=== PATIENT | female | born 1960 | race Two or more races ===

== ENCOUNTER 2025-03-12 16:15 | Inpatient (IN) | payer MEDICAID, OTHER ==
[~2025-03-12] VITALS: Ht 162.6 cm; Wt 67.0 kg
--- NOTE | 2025-03-12 17:26 | ED.PDOC ---
GI ASSESSMENT HPI Comments 65 y/o F, with PMHx of dementia and chronic gastrointestinal issues presents to the ED for CC of abdominal pain. EMS reports, patient is coming from home where she c/o diarrhea following, eating a breadstick. Patient states, that she is usually not able to maintain foods other than salad and water, and since having bread it has prompted symptoms. Upon arrival to the ED, patient arrives incontinent and defecated. At this time patient is answering all questions appropriately. Patient denies nausea, vomiting, increased thirst, dizziness, or headache. No other symptoms or modifying factors are present at this time. Chief Complaint: Abdominal Pain Time Seen by MD: 17:00 Reviewed Notes: Nurses Notes Allergies: Coded Allergies: NO KNOWN ALLERGIES (Unverified , 03/12/25) Information Source: Patient Mode of Arrival: EMS Past Medical History PAST MEDICAL HISTORY: Dementia, HTN Respiratory: denies: cough, hemoptysis, orthopnea, SOB at rest, shortness of breath, SOB with excertion, stridor, wheezing, others Cardiovascular: denies: chest pain, dizzy spells, diaphoresis, Dyspnea on exertion, edema, irregular heart beat, left arm pain, lightheadedness, palpitations, PND, syncope, others Gastrointestinal: reports: abdominal pain, diarrhea, nausea, poor appetite Genitourinary: denies: abnormal vagina bleeding, burning, dyspareunia, dysuria, flank pain, frequency, hematuria, incontinence, pain, , vagina discharge, urgency, others Neurological: denies: dizziness, fainting, headache, left sided numbness, left sided weakness, numbness, paresthesia, pre-existing deficit, right sided numbness, right sided weakness, seizure, speech problems, tingling, tremors, weakness, others Musculoskeletal: denies: back pain, gout, joint pain, joint swelling, muscle pain, muscle stiffness, neck pain, others Physical Exam General Appearance: No Apparent Distress, Thin, Other (fraile, incontinent covered in feces ) HEENT: Normal ENT Inspection, Pharynx Normal Neck: Full Range of Motion, Non-Tender, Normal, Normal Inspection Respiratory: Chest Non-Tender, Lungs Clear, No Accessory Muscle Use, No Respiratory Distress, Normal Breath Sounds Cardiovascular: No Edema, No Murmur, No Gallop, Normal Peripheral Pulses, Regular Rate/Rhythm Breast Exam: Deferred Gastrointestinal: No Organomegaly, Non Tender, No Pulsatile Mass, Normal Bowel Sounds, Soft Genitalia: Deferred Pelvic: Deferred Rectal: Deferred Extremities: No calf tenderness, Normal capillary refill, Normal inspection, Normal range of motion, Non-tender, No pedal edema Musculoskeletal : Apperance: Normal Neurologic: Alert, chief revenue officer II-XII nml as Tested, No Motor Deficits, Normal Affect, Normal Mood, No Sensory Deficits Cerebellar Function: Normal Reflexes: Normal Skin: Dry, Normal Color, Warm Lymphatic: No Adenopathy Was a procedure done? Was a procedure done?: No GI differential Dx Differential Diagnosis: Gastritis/PUD, Gastroenteritis, Electrolyte Imbalance, Food Poisoning, Bacterial, Viral X-Ray, Labs, Meds, VS Vital Signs Date Time Temp Pulse Resp B/P (MAP) Pulse Ox O2 Delivery O2 Flow Rate FiO2 03/12/25 20:36 93 20 96 Room Air* 0 21 03/12/25 20:36 98.1 78 20 124/74 (91) 97 98.1 03/12/25 19:07 97 18 98 Room Air* 0 21 03/12/25 19:07 98.7 97 18 115/55 (75) 98 98.7 03/12/25 16:18 89 03/12/25 16:16 98.4 90 18 122/70 95 98.4 Lab Test 03/12/25 21:00 03/12/25 18:00 Range/Units Urine Color Pending Urine Clarity Pending Urine pH Pending Urine Specific [place] Pending Urine Protein Pending Urine Ketones Pending Urine Blood Pending Urine Nitrite Pending Urine Bilirubin Pending Urine Urobilinogen Pending Urine Leukocyte Esterase Pending Urine RBC Pending Urine Microscopic WBC Pending Urine Squamous Epithelial Cells Pending Urine Bacteria Pending Urine Glucose Pending White Blood Count 18.7 H 4.4-10.8 10^3/uL Red Blood Count 4.09 4.0-5.20 10^6/uL Hemoglobin 11.5 L 12.2-16.2 g/dL Hematocrit 34.9 L 36.0-46.0 % Mean Corpuscular Volume 85.3 80.0-100.0 fL Mean Corpuscular Hemoglobin 28.0 28.0-32.0 pg Mean Corpuscular Hemoglobin Concent 32.8 32.0-36.0 g/dL Red Cell Distribution Width 12.9 11.8-14.3 % Platelet Count 295 140-450 10^3/uL Mean Platelet Volume 8.5 6.9-10.8 fL Neutrophils (%) (Auto) 77.6 37.0-80.0 % Lymphocytes (%) (Auto) 10.6 10.0-50.0 % Monocytes (%) (Auto) 11.5 0.0-12.0 % Eosinophils (%) (Auto) 0.1 0.0-7.0 % Basophils (%) (Auto) 0.2 0.0-2.0 % Neutrophils # (Auto) 14.5 H 1.6-8.6 10 ^3/uL Lymphocytes # (Auto) 2.0 0.4-5.4 10 ^3/uL Monocytes # (Auto) 2.1 H 0-1.3 10 ^3/uL Eosinophils # (Auto) 0 0-0.8 10 ^3/uL Basophils # (Auto) 0 0-0.2 10 ^3/uL Nucleated Red Blood Cells 0.0 % Sodium Level 147 H 136-145 mmol/L Potassium Level 3.7 3.5-5.1 mmol/L Chloride Level 105 98-107 mmol/L Carbon Dioxide Level 31 20-31 mmol/L Anion Gap 11 5-15 Blood Urea Nitrogen 11 9-23 mg/dL Creatinine 0.84 0.550-1.02 mg/dL Glomerular Filtration Rate Calc 77 >90 mL/min BUN/Creatinine Ratio 13.1 10.0-20.0 Serum Glucose 157 H 74-106 mg/dL Lactic Acid Level 1.4 0.4-2.0 mmol/L Calcium Level 10.0 8.7-10.4 mg/dL Total Bilirubin 0.7 0.2-1.0 mg/dL Aspartate Amino Transferase (AST) 32 13-40 U/L Alanine Aminotransferase (ALT) 30 7-40 U/L Alkaline Phosphatase 92 46-116 U/L Total Protein 8.0 5.7-8.2 g/dL Albumin 4.5 3.2-4.8 g/dL Lipase 27 12-53 U/L X-Ray, Labs, Meds, VS Comment Patient be admitted for cholelithiasis, recommend MRCP Patient be started on Rocephin and Flagyl Given four morphine and four Zofran Patient hemodynamically stable Time of 1ST Reevaluation: 17:30 Reevaluation 1ST: Unchanged Patient Education/Counseling: Diagnosis, Treatment Family Education/Counseling: No Family Present SEPSIS Sepsis Screen Date sepsis recognized/suspect: Mar 12, 2025 Time Sepsis recognized/suspect: 1615 Recent Procedure: No On Antibiotic Therapy: No Respiratory Rate >20: No Heart Rate >90: No Temp<36 C (96.8 F) or >38.3 C: No SBP <90 or MAP <65 mmHG: No New Acute Mental Status Change: No Is the patient on CPAP, BIPAP,: No Physician Orders Electrocardigram (03/12/25 16:21) Urinalysis (03/12/25 16:56) Ct Ab Pel Wo Con-No Oral Or Iv (03/12/25 16:56) Hubbard Catheters (03/12/25 ) Gallbladder (03/12/25 20:38) Ceftriaxone Ivpb Rocephin (03/12/25 21:45) Metronidazole Ivpb Flagyl (03/12/25 21:45) Vital Signs Date Time Temp Pulse Resp B/P (MAP) Pulse Ox O2 Delivery O2 Flow Rate FiO2 03/12/25 20:36 93 20 96 Room Air* 0 21 03/12/25 20:36 98.1 78 20 124/74 (91) 97 98.1 03/12/25 19:07 97 18 98 Room Air* 0 21 03/12/25 19:07 98.7 97 18 115/55 (75) 98 98.7 03/12/25 16:18 89 03/12/25 16:16 98.4 90 18 122/70 95 98.4 Laboratory Tests Test 03/12/25 18:00 Lactic Acid Level 1.4 mmol/L (0.4-2.0) White Blood Count 18.7 10^3/uL (4.4-10.8) H Departure 1 Departure Time of Disposition: 21:48 Impression: Primary Impression: Cholecystitis Disposition: ADMITTED INPATIENT Condition: Stable Critical Care Note Critical Care Time?: No Stability Stability form required: No Heart Score Heart Score: Heart Score Response (Comments) Value History N/A 0 EKG N/A 0 Age N/A 0 Risk Factors N/A 0 Troponin N/A 0 Total 0 I personally scribed for GENNY GONZALES ([email or web address]) on 03/12/25 at 17:26. Electronically submitted by Izzy Pate ([email or web address]). GENNY GONZALES Mar 12, 2025 17:26
[2025-03-12 18:38] LABS: Hematocrit 34.9 % (36.0-46.0); Hemoglobin 11.5 g/dL (12.2-16.2); Mean Corpuscular Hemoglobin 28.0 pg (28.0-32.0); Mean Corpuscular Volume 85.3 fL (80.0-100.0); Nucleated Red Blood Cells % 0.0 %
[2025-03-12 18:58] LABS: Alanine Aminotransferase 30 U/L (7-40); Albumin 4.5 g/dL (3.2-4.8); Alkaline Phosphatase 92 U/L (46-116); Anion Gap 11 (5-15); BUN/Creatinine Ratio 13.1 (10.0-20.0); Bilirubin, Total 0.7 mg/dL (0.2-1.0); Blood Urea Nitrogen 11 mg/dL (9-23); Calcium 10.0 mg/dL (8.7-10.4); Carbon Dioxide 31 mmol/L (20-31); Chloride 105 mmol/L (98-107); Glucose 157 mg/dL (74-106); Lipase 27 U/L (12-53); Potassium 3.7 mmol/L (3.5-5.1); Sodium 147 mmol/L (136-145); Total Protein 8.0 g/dL (5.7-8.2)
[2025-03-12 19:07] VITALS: PULSE 97; RESP 18; O2SAT 98
--- NOTE | 2025-03-12 20:01 | DVH ---
Exam: CT CT AB PEL WO CON-NO ORAL OR IV History: abd pain Comparison Study: None TECHNIQUE: Multidetector CT of the abdomen pelvis without IV contrast. Axial, coronal and sagittal mu ltiplanar reformats were obtained from the axial data set by the technologist. Radiation Dose Information: CT Dose: CTDI volume is 5.94 mGy. Dose-length product is 317.12 mGy*cm FINDINGS: Atelectasis. Heart size is within normal limits regions Peritoneal effusion. Liver, spleen, and adrenal glands unremarkable. Moderate to significant distention of the gallbladder mild gallbladder wall thickening. No CT evidence of cholelithiasis. Limited evaluation of the pancr eas for acute pancreatitis. Kidneys, visualized ureters unremarkable. Moderate distention of the urinary bladder up to the level of the lower vertebral body of L5. Hxka-la-slziepto distention of the stomach. Small bowel loops unremarkable. Short segmental distentio n of the appendix up to 1 cm over an area with 1.1 by 1 cm appendicolith with the appendix proximal a nd distal to the segmental distention unremarkable. Large bowel is unremarkable. No evidence of intraperitoneal free air or free fluid. No evidence of aortic aneurysm. Mild atherosclerotic calcification of the aorta. No significant lymphadenopathy. Partially calcified left adnexal 1.2 cm lesion. Soft tissue edema posterior to the distal sacrum and coccyx. Tiny fat containing umbilical hernia. Mi nimal body wall edema. No evidence of acute osseous abnormalities. Grade 1 retrolisthesis of L5 on S1 . IMPRESSION: Moderate to significant distention of the gallbladder with mild gallbladder wall thickening. No CT ev idence of cholelithiasis. Right upper quadrant ultrasound is recommended for further evaluation. Moderate distention of the urinary bladder up to the level of the lower vertebral body of L5. If pat ient can not void, Hubbard catheter placement should be considered. Short segmental distention of the appendix up to 1 cm over an area with 1.1 by 1 cm appendicolith wit h the appendix proximal and distal to the segmental distention unremarkable.
[2025-03-12 20:36] VITALS: PULSE 93; RESP 20; O2SAT 96
[2025-03-12] MEDS: ONDANSETRON HCL 4 MG/2 ML VIAL IV ONE (20:45)
[2025-03-12] MEDS: MORPHINE SULFATE 4 MG/ML SYR/VIAL IV ONE (20:45)
--- NOTE | 2025-03-12 21:12 | DVH ---
CLINICAL INFORMATION: 65 years old, Female; abd pain. TECHNIQUE: Grayscale sonographic imaging of the right upper quadrant of the abdomen was performed, a ssisted by color Doppler techniques. COMPARISON: None FINDINGS: The gallbladder wall measures 6 mm in thickness, within normal limits. There is cholelith iasis. Negative reported sonographic Ashley sign. The common bile duct measures 9 mm in diameter. The liver is normal in size and demonstrates heterogeneous echotexture. No focal lesions. The pancreas is partly obscured, likely by bowel gas. The visualized portions appear normal. The right kidney measures 8.6 cm. There is no hydronephrosis. A 9 mm nonobstructing renal calculus is seen. IMPRESSION: 1. Cholelithiasis with gallbladder wall thickening. Findings may reflect acute cholecystitis in the appropriate clinical setting. 2. Dilated common bile duct, further evaluation with MRCP is suggested.
[2025-03-12 22:03] LABS: Urine Protein, UAD TRACE (Negative)
[2025-03-12] MEDS ORDERED: MORPHINE SULFATE INJ 2 MG/ml SYRG IV PRN (23:15)
[2025-03-12] MEDS ORDERED: DEXTROSE (50%) 50ML SYRG IV PRN ×2 (23:15)
[2025-03-12] MEDS: SODIUM CHLORIDE 0.9% 1,000 ML IV ONE (23:30)
[2025-03-12] MEDS: PANTOPRAZOLE 40 MG/10 ML VIAL INJ IV ONE (23:31)
[2025-03-13] VITALS (9 sets, daily range): BP systolic 98–146; BP diastolic 53–71; PULSE 74–96; RESP 12–18; TEMP 97–97.9; O2SAT 93–100
[2025-03-13 00:07] LABS: INR 1.01 (0.9-1.15); Partial Thromboplastin Time 25.4 SEC (24.5-34.5); Prothrombin Time 10.7 sec (9.3-11.8)
[2025-03-13] MEDS: ACCU-CHEK COMFORT CURVE STRIP VI SCH ×2 (00:09)
[2025-03-13] MEDS: InsuLIN REG 1unit/0.01ml Soln (100units/ml) SC SCH ×2 (00:19)
--- NOTE | 2025-03-13 03:46 | DVHHP2 ---
History of Present Illness Reason for Visit: Abdominal pain History of Present Illness 65-year-old female presents for evaluation of abdominal pain. Patient reports a one day history of diffuse abdominal pain after eating a bread stick. Reports episodes of nausea with vomiting as well as diarrhea. No fever or chills. Past Medical History Diabetes mellitus, hypertension, dementia, thyroid Past Surgical History Denies Family History Noncontributory Smoke: No ALCOHOL: none Drugs: None Lives: with Family Review of Systems Review of Systems Review of systems are currently negative otherwise addressed in HPI. Allergies: Coded Allergies: NO KNOWN ALLERGIES (Unverified , 03/12/25) Medications Current Medications Medications Dose Ordered Sig/Marisa Route Start Time Stop Time Status Last Admin Dose Admin Ceftriaxone Sodium 50 ml @ 100 mls/hr DAILY@09 IV 03/14/25 09:00 Metronidazole 100 ml @ 100 mls/hr Q8HR IV 03/13/25 06:00 Pantoprazole Sodium 40 mg DAILY IV 03/14/25 10:00 Ondansetron HCl 4 mg Q4HP PRN IV 03/12/25 23:15 Morphine Sulfate 2 mg Q4HPRN PRN IV 03/12/25 23:15 Diagnostic Test (Pha) 1 strip Q6HR 03/13/25 00:00 03/13/25 00:09 1 STRIP Insulin Human Regular Q6HR SC 03/13/25 00:00 03/13/25 00:19 3 UNITS Dextrose 50 ml UD PRN IV 03/12/25 23:15 Diagnostic Test (Pha) 1 strip Q6HR 03/13/25 00:00 Insulin Human Regular Q6HR SC 03/13/25 00:00 Dextrose 50 ml UD PRN IV 03/12/25 23:15 Exam Vital Signs Vital Signs Date Time Temp Pulse Resp B/P (MAP) Pulse Ox O2 Delivery O2 Flow Rate FiO2 03/12/25 21:15 91 20 97/62 03/12/25 20:36 96 Room Air* 0 21 03/12/25 20:36 98.1 98.1 Exam Gen: 65-year-old female Skin: Warm, dry, normal color and texture, no rash. HEENT: Normocephalic atraumatic, mucous membranes moist and pink. Neck: Cervical and supraclavicular nodes normal without enlargement, trachea is midline, thyroid gland is normal without masses. Pulmonary: Clear to auscultation and percussion bilaterally. Cardiac: Regular rate and rhythm. No murmur Abdomen: Soft, nontender, nondistended, bowel sounds present all 4 quadrants, no guarding, no rigidity, no organomegaly. Extremities: No cyanosis, clubbing, no edema Neuro: Cranial nerves II through XII grossly intact, normal affect and speech, no focal motor deficits. Labs/Xrays ORDERING PHYSICIAN: GENNY GONZALES PROCEDURE(s): ABPL - CT AB PEL WO CON-NO ORAL OR IV REASON: abd pain ORDER NUMBER(s): [id number], ACCESSION NUMBER(s): [id number] Exam: CT CT AB PEL WO CON-NO ORAL OR IV History: abd pain Comparison Study: None TECHNIQUE: Multidetector CT of the abdomen pelvis without IV contrast. Axial, coronal and sagittal multiplanar reformats were obtained from the axial data set by the technologist. Radiation Dose Information: CT Dose: CTDI volume is 5.94 mGy. Dose-length product is 317.12 mGy*cm FINDINGS: Atelectasis. Heart size is within normal limits regions Peritoneal effusion. Liver, spleen, and adrenal glands unremarkable. Moderate to significant distention of the gallbladder mild gallbladder wall thickening. No CT evidence of cholelithiasis. Limited evaluation of the pancreas for acute pancreatitis. Kidneys, visualized ureters unremarkable. Moderate distention of the urinary bladder up to the level of the lower vertebral body of L5. [place] distention of the stomach. Small bowel loops unremarkable. Short segmental distention of the appendix up to 1 cm over an area with 1.1 by 1 cm appendicolith with the appendix proximal and distal to the segmental distention unremarkable. Large bowel is unremarkable. No evidence of intraperitoneal free air or free fluid. No evidence of aortic aneurysm. Mild atherosclerotic calcification of the aorta. No significant lymphadenopathy. Partially calcified left adnexal 1.2 cm lesion. Soft tissue edema posterior to the distal sacrum and coccyx. Tiny fat containing umbilical hernia. Minimal body wall edema. No evidence of acute osseous abnormalities. Grade 1 retrolisthesis of L5 on S1. IMPRESSION: Moderate to significant distention of the gallbladder with mild gallbladder wall thickening. No CT evidence of cholelithiasis. Right upper quadrant ultrasound is recommended for further evaluation. Moderate distention of the urinary bladder up to the level of the lower vertebral body of L5. If patient can not void, Hubbard catheter placement should be considered. Short segmental distention of the appendix up to 1 cm over an area with 1.1 by 1 cm appendicolith with the appendix proximal and distal to the segmental distention unremarkable. RING PHYSICIAN: GENNY GONZALES PROCEDURE(s): GBUS - GALLBLADDER REASON: abd pain ORDER NUMBER(s): [id number], ACCESSION NUMBER(s): [id number] CLINICAL INFORMATION: 65 years old, Female; abd pain. TECHNIQUE: Grayscale sonographic imaging of the right upper quadrant of the abdomen was performed, assisted by color Doppler techniques. COMPARISON: None FINDINGS: The gallbladder wall measures 6 mm in thickness, within normal limit s. There is cholelithiasis. Negative reported sonographic Ashley sign. The common bile duct measures 9 mm in diameter. The liver is normal in size and demonstrates heterogeneous echotexture. No focal lesions. The pancreas is partly obscured, likely by bowel gas. The visualized portions appear normal. The right kidney measures 8.6 cm. There is no hydronephrosis. A 9 mm nonobst ructing renal calculus is seen. IMPRESSION: 1. Cholelithiasis with gallbladder wall thickening. Findings may reflect acute cholecystitis in the appropriate clinical setting. 2. Dilated common bile duct, further evaluation with MRCP is suggested. Labs Test 03/13/25 00:10 03/12/25 23:30 03/12/25 21:00 03/12/25 18:00 Range/Units POC Glucose 189 H 70-106 mg/dl Prothrombin Time 10.7 9.3-11.8 sec Prothrombin Time INR 1.01 0.9-1.15 Activated Partial Thromboplast Time 25.4 24.5-34.5 SEC Urine Color Light-yellow Yellow Urine Clarity Clear Clear Urine pH 7.0 5.0-9.0 Urine Specific [place] 1.011 1.001-1.035 Urine Protein Trace H Negative Urine Ketones Negative Negative Urine Blood Negative Negative /uL Urine Nitrite Negative Negative Urine Bilirubin Negative Negative Urine Urobilinogen Normal Negative mg/dL Urine Leukocyte Esterase 2+ Negative /uL Urine RBC 4 0 - 4 /hpf Urine Microscopic WBC 11 H 0-5 /HPF Urine Squamous Epithelial Cells Few <5 /hpf Urine Bacteria None seen None Seen /hpf Urine Hyaline Casts Few 0 - 2 /lpf Urine Glucose Normal Normal mg/dL White Blood Count 18.7 H 4.4-10.8 10^3/uL Red Blood Count 4.09 4.0-5.20 10^6/uL Hemoglobin 11.5 L 12.2-16.2 g/dL Hematocrit 34.9 L 36.0-46.0 % Mean Corpuscular Volume 85.3 80.0-100.0 fL Mean Corpuscular Hemoglobin 28.0 28.0-32.0 pg Mean Corpuscular Hemoglobin Concent 32.8 32.0-36.0 g/dL Red Cell Distribution Width 12.9 11.8-14.3 % Platelet Count 295 140-450 10^3/uL Mean Platelet Volume 8.5 6.9-10.8 fL Neutrophils (%) (Auto) 77.6 37.0-80.0 % Lymphocytes (%) (Auto) 10.6 10.0-50.0 % Monocytes (%) (Auto) 11.5 0.0-12.0 % Eosinophils (%) (Auto) 0.1 0.0-7.0 % Basophils (%) (Auto) 0.2 0.0-2.0 % Neutrophils # (Auto) 14.5 H 1.6-8.6 10 ^3/uL Lymphocytes # (Auto) 2.0 0.4-5.4 10 ^3/uL Monocytes # (Auto) 2.1 H 0-1.3 10 ^3/uL Eosinophils # (Auto) 0 0-0.8 10 ^3/uL Basophils # (Auto) 0 0-0.2 10 ^3/uL Nucleated Red Blood Cells 0.0 % Sodium Level 147 H 136-145 mmol/L Potassium Level 3.7 3.5-5.1 mmol/L Chloride Level 105 98-107 mmol/L Carbon Dioxide Level 31 20-31 mmol/L Anion Gap 11 5-15 Blood Urea Nitrogen 11 9-23 mg/dL Creatinine 0.84 0.550-1.02 mg/dL Glomerular Filtration Rate Calc 77 >90 mL/min BUN/Creatinine Ratio 13.1 10.0-20.0 Serum Glucose 157 H 74-106 mg/dL Lactic Acid Level 1.4 0.4-2.0 mmol/L Calcium Level 10.0 8.7-10.4 mg/dL Total Bilirubin 0.7 0.2-1.0 mg/dL Aspartate Amino Transferase (AST) 32 13-40 U/L Alanine Aminotransferase (ALT) 30 7-40 U/L Alkaline Phosphatase 92 46-116 U/L Total Protein 8.0 5.7-8.2 g/dL Albumin 4.5 3.2-4.8 g/dL Lipase 27 12-53 U/L SEPSIS Sepsis Screen Date sepsis recognized/suspect: Mar 12, 2025 Time Sepsis recognized/suspect: 2039 Recent Procedure: No On Antibiotic Therapy: No Respiratory Rate >20: No Heart Rate >90: No Temp<36 C (96.8 F) or >38.3 C: No SBP <90 or MAP <65 mmHG: No New Acute Mental Status Change: No Is the patient on CPAP, BIPAP,: No Physician Orders Gallbladder (03/12/25 20:38) Nm Hida Scan (03/12/25 23:15) Metronidazole 500mg/100ml (Flagyl 500mg/ (03/13/25 06:00) Sodium Chloride 0.9% (03/12/25 23:15) * Surgical Consult (03/12/25 ) Ondansetron Hcl (Zofran) (03/12/25 23:15) Complete Blood Count (03/13/25 04:00) Comprehensive Metabolic Panel (03/13/25 04:00) Npo (Nothing By Mouth) Diet (03/13/25 Breakfast) Condition: Stable (03/12/25 23:15) Bedrest With Bathroom Privileg (03/12/25 23:15) Morphine Sulfate Injection (03/12/25 23:15) Glucose Blood (Accu-Chek Comfort Curve T (03/13/25 00:00) Insulin R (Human) (Insulin R) (03/13/25 00:00) Dextrose 50% Syringe (03/12/25 23:15) Glucose Blood (Accu-Chek Comfort Curve T (03/13/25 00:00) Insulin R (Human) (Insulin R) (03/13/25 00:00) Dextrose 50% Syringe (03/12/25 23:15) Admit (03/12/25 23:15) Ceftriaxone 1gm/50ml (Rocephin) (03/14/25 09:00) Pantoprazole (Protonix) (03/14/25 10:00) Vital Signs Date Time Temp Pulse Resp B/P (MAP) Pulse Ox O2 Delivery O2 Flow Rate FiO2 03/12/25 21:15 91 20 97/62 03/12/25 20:45 78 20 125/78 03/12/25 20:36 93 20 96 Room Air* 0 21 03/12/25 20:36 98.1 78 20 124/74 (91) 97 98.1 Laboratory Tests Test 03/12/25 18:00 Lactic Acid Level 1.4 mmol/L (0.4-2.0) White Blood Count 18.7 10^3/uL (4.4-10.8) H Medications Medications Dose Ordered Sig/Marisa Route Start Time Stop Time Status Last Admin Dose Admin Ceftriaxone Sodium 50 ml @ 100 mls/hr ONCE ONCE IV 03/12/25 21:45 03/12/25 22:14 DC 03/12/25 21:45 100 MLS/HR Diagnostic Test (Pha) 1 strip Q6HR 03/13/25 00:00 03/13/25 00:09 1 STRIP Insulin Human Regular Q6HR SC 03/13/25 00:00 03/13/25 00:19 3 UNITS Metronidazole 100 ml @ 100 mls/hr ONCE ONCE IV 03/12/25 21:45 03/12/25 22:44 DC 03/12/25 21:45 100 MLS/HR Morphine Sulfate 4 mg ONCE ONCE IV 03/12/25 20:45 03/12/25 20:46 DC 03/12/25 20:45 4 MG Ondansetron HCl 4 mg ONCE ONCE IV 03/12/25 20:45 03/12/25 20:46 DC 03/12/25 20:45 4 MG Pantoprazole Sodium 40 mg ONCE ONCE IV 03/12/25 23:15 03/12/25 23:27 DC 03/12/25 23:31 40 MG Sodium Chloride 1,000 ml @ 80 mls/hr [id number] ONCE IV 03/12/25 23:15 03/13/25 11:44 9/30/25 23:30 80 MLS/HR Assessment/Plan Assessment/Plan Assessment Acute abdominal pain Rule out acute cholecystitis UTI Diabetes mellitus Plan Admit the patient to [facility] surge to the hospitalist HIDA scan pending Surgical consultation NPO Pain management Rocephin/Flagyl Maintenance IV fluids Continue treatment per orders. Plan discussed with: Patient My Orders Orders - MELANIE MCKEE Procedure Category Date Status Time Nm Hida Scan NM 03/12/25 Logged 23:15 Metronidazole PHA 03/13/25 In Process 500mg/100ml (Flagyl 06:00 Sodium Chloride 0.9% PHA 03/12/25 In Process 23:15 * Surgical Consult CONS 03/12/25 Transmitted Ondansetron Hcl PHA 03/12/25 In Process (Zofran) 23:15 Complete Blood Count LAB 03/13/25 Logged 04:00 Comprehensive LAB 03/13/25 Logged Metabolic Panel 04:00 Npo (Nothing By DIET 03/13/25 Transmitted Mouth) Diet Breakfast Condition: Stable BARNEY 03/12/25 In Process 23:15 Bedrest With Bathroom BARNEY 03/12/25 In Process Privileg 23:15 Morphine Sulfate PHA 03/12/25 In Process Injection 23:15 Glucose Blood PHA 03/13/25 In Process (Accu-Chek Comfort 00:00 Insulin R (Human) PHA 03/13/25 In Process (Insulin R) 00:00 Dextrose 50% Syringe PHA 03/12/25 In Process 23:15 Glucose Blood PHA 03/13/25 In Process (Accu-Chek Comfort 00:00 Insulin R (Human) PHA 03/13/25 In Process (Insulin R) 00:00 Dextrose 50% Syringe PHA 03/12/25 In Process 23:15 Admit ADMIT 03/12/25 Transmitted 23:15 Ceftriaxone 1gm/50ml PHA 03/14/25 In Process (Rocephin) 09:00 Pantoprazole PHA 03/14/25 In Process (Protonix) 10:00 Date of Service: Mar 12, 2025 Billing Provider: MELANIE MCKEE Common Visit Codes: [id number] INP/OBS CARE (HIGH) MELANIE MCKEE Mar 13, 2025 03:46
[2025-03-13 06:50] LABS: Hematocrit 27.8 % (36.0-46.0); Hemoglobin 9.3 g/dL (12.2-16.2); Mean Corpuscular Hemoglobin 28.3 pg (28.0-32.0); Mean Corpuscular Volume 84.4 fL (80.0-100.0); Nucleated Red Blood Cells % 0.1 %
[2025-03-13 07:17] LABS: Alkaline Phosphatase 81 U/L (46-116); Anion Gap 10 (5-15); BUN/Creatinine Ratio 14.3 (10.0-20.0); Blood Urea Nitrogen 13 mg/dL (9-23); Carbon Dioxide 29 mmol/L (20-31); Chloride 106 mmol/L (98-107); Sodium 145 mmol/L (136-145)
[2025-03-13 07:18] LABS: Total Protein 6.2 g/dL (5.7-8.2)
[2025-03-13 07:19] LABS: Albumin 3.5 g/dL (3.2-4.8); Bilirubin, Total 0.7 mg/dL (0.2-1.0)
[2025-03-13 07:20] LABS: Alanine Aminotransferase 60 U/L (7-40); Calcium 8.6 mg/dL (8.7-10.4); Glucose 116 mg/dL (74-106); Potassium 3.3 mmol/L (3.5-5.1)
--- NOTE | 2025-03-13 10:35 | DVH ---
EXAM: XY CHEST PORTABLE Indication: pain Technique: Single frontal view of the chest was obtained Comparison: None FINDINGS: Lines and Tubes: None Lungs: No focal consolidation. Pleura: No effusion. No pneumothorax. Cardiomediastinal contours: Unremarkable. Bones: No acute osseous abnormality. IMPRESSION: No acute cardiopulmonary disease.
[2025-03-13] MEDS: ceFAZolin 1GM/50ML 100 ML IV ONE (11:05)
[2025-03-13] MEDS: GABAPENTIN 300 MG CAP PO ONE (11:15)
[2025-03-13] MEDS: ACETAMINOPHEN IV 1000 MG/100ML (10MG/ML) IV ONE (11:15)
[2025-03-13] MEDS: CELECOXIB 100 MG CAP PO ONE (11:15)
[2025-03-13] MEDS ORDERED: SUGAMMADEX 200mg/2ml Vial (100MG/ML) IV ONE (11:18)
[2025-03-13] MEDS ORDERED: KETOROLAC TROMETH 30 MG/ML 1ML VIAL ONE (11:18)
[2025-03-13] MEDS ORDERED: LIDOCAINE 2%HCL (LOCAL ANESTH.) INJ 20ML MDV ONE (11:18)
[2025-03-13] MEDS ORDERED: LIDOCAINE 2% TOPICAL JELLY 5 ML URJT TOP ONE (11:18)
[2025-03-13] MEDS ORDERED: ONDANSETRON HCL 4 MG/2 ML VIAL ONE (11:18)
[2025-03-13] MEDS ORDERED: GLYCOPYRROLATE 0.2 MG/ML 1ML VIAL ONE (11:19)
[2025-03-13] MEDS ORDERED: PROPOFOL 10 MG/ML 20 ML IV ONE (11:19)
[2025-03-13] MEDS ORDERED: ROCURONIUM 10MG/ML 10ML VIAL IV ONE (11:19)
[2025-03-13] MEDS ORDERED: KETAMINE 50mg/ML 10ml Vial 10 ML ONE (11:22)
[2025-03-13] MEDS ORDERED: fentaNYL CITRATE 100 MCG/2 ML VL ONE (11:22)
--- NOTE | 2025-03-13 11:42 | DVHINCON2 ---
Consultation - Surgical Date Seen: Mar 13, 2025 Referring Physician Reason for Consultation Acute cholecystitis History of Present Illness History of Present Illness Mrs. Nobles is a 65-year-old female who presented to the hospital due to to to 3 days of upper abdominal pain that radiates to the right upper quadrant and associated with nausea and vomiting. She has also had loss of appetite not wanting to eat since Tuesday. States that she has never had this pain before and that she does not associate any particular foods with triggering the pain. Denies fevers, chills, acholic stools, changes in urinary or stooling habits. Past Medical/Surgical History Past Medical/Surgical History PMH diabetes, hypertension, dementia, blind PSH denies Family and Social History Family and Social History Family history noncontributory ETOH/T Ob/drugs denies Allergies and medications Allergies: Coded Allergies: NO KNOWN ALLERGIES (Unverified , 03/12/25) Review of systems Review of Systems: Deferred Examination Vital signs Vital Signs Date Time Temp Pulse Resp B/P (MAP) Pulse Ox O2 Delivery O2 Flow Rate FiO2 03/13/25 08:43 97.9 92 16 98/53 (68) 96 97.9 03/13/25 03:44 Room Air* 0 21 Medications Current Medications Medications (Trade) Dose Ordered Sig/Marisa Route PRN Reason Start Time Stop Time Status Last Admin Ceftriaxone Sodium 50 ml @ 100 mls/hr DAILY@09 IV 03/14/25 09:00 Metronidazole 100 ml @ 100 mls/hr Q8HR IV 03/13/25 06:00 03/13/25 05:33 Pantoprazole Sodium (Protonix) 40 mg DAILY IV 03/14/25 10:00 Ondansetron HCl (Zofran) 4 mg Q4HP PRN IV NAUSEA / VOMITING 03/12/25 23:15 Morphine Sulfate 2 mg Q4HPRN PRN IV SEVERE PAIN (7-10 PAIN SCALE) 03/12/25 23:15 Diagnostic Test (Pha) (Accu-Chek Comfort Curve T) 1 strip Q6HR 03/13/25 00:00 03/13/25 00:09 Insulin Human Regular (InsuLIN R) Q6HR SC 03/13/25 00:00 03/13/25 00:19 Dextrose 50 ml UD PRN IV Blood Sugar LESS THAN 60 03/12/25 23:15 03/13/25 11:33 DC Diagnostic Test (Pha) (Accu-Chek Comfort Curve T) 1 strip Q6HR 03/13/25 00:00 03/13/25 11:33 DC Insulin Human Regular (InsuLIN R) Q6HR SC 03/13/25 00:00 03/13/25 11:33 DC 03/13/25 06:00 Dextrose 50 ml UD PRN IV Blood Sugar LESS THAN 60 03/12/25 23:15 Laboratory Labs Test 03/13/25 06:00 03/13/25 00:10 03/12/25 23:30 03/12/25 21:00 Range/Units White Blood Count 11.1 #H 4.4-10.8 10^3/uL Red Blood Count 3.29 L 4.0-5.20 10^6/uL Hemoglobin 9.3 #L 12.2-16.2 g/dL Hematocrit 27.8 #L 36.0-46.0 % Mean Corpuscular Volume 84.4 80.0-100.0 fL Mean Corpuscular Hemoglobin 28.3 28.0-32.0 pg Mean Corpuscular Hemoglobin Concent 33.6 32.0-36.0 g/dL Red Cell Distribution Width 12.9 11.8-14.3 % Platelet Count 235 140-450 10^3/uL Mean Platelet Volume 8.3 6.9-10.8 fL Neutrophils (%) (Auto) 65.2 37.0-80.0 % Lymphocytes (%) (Auto) 24.3 10.0-50.0 % Monocytes (%) (Auto) 9.0 0.0-12.0 % Eosinophils (%) (Auto) 1.2 0.0-7.0 % Basophils (%) (Auto) 0.3 0.0-2.0 % Neutrophils # (Auto) 7.2 1.6-8.6 10 ^3/uL Lymphocytes # (Auto) 2.7 0.4-5.4 10 ^3/uL Monocytes # (Auto) 1.0 0-1.3 10 ^3/uL Eosinophils # (Auto) 0.1 0-0.8 10 ^3/uL Basophils # (Auto) 0 0-0.2 10 ^3/uL Nucleated Red Blood Cells 0.1 % Sodium Level 145 136-145 mmol/L Potassium Level 3.3 L 3.5-5.1 mmol/L Chloride Level 106 98-107 mmol/L Carbon Dioxide Level 29 20-31 mmol/L Anion Gap 10 5-15 Blood Urea Nitrogen 13 9-23 mg/dL Creatinine 0.91 0.550-1.02 mg/dL Glomerular Filtration Rate Calc 70 >90 mL/min BUN/Creatinine Ratio 14.3 10.0-20.0 Serum Glucose 116 H 74-106 mg/dL Calcium Level 8.6 L 8.7-10.4 mg/dL Total Bilirubin 0.7 0.2-1.0 mg/dL Aspartate Amino Transferase (AST) 71 H 13-40 U/L Alanine Aminotransferase (ALT) 60 H 7-40 U/L Alkaline Phosphatase 81 46-116 U/L Total Protein 6.2 5.7-8.2 g/dL Albumin 3.5 3.2-4.8 g/dL POC Glucose 189 H 70-106 mg/dl Prothrombin Time 10.7 9.3-11.8 sec Prothrombin Time INR 1.01 0.9-1.15 Activated Partial Thromboplast Time 25.4 24.5-34.5 SEC Urine Color Light-yellow Yellow Urine Clarity Clear Clear Urine pH 7.0 5.0-9.0 Urine Specific [place] 1.011 1.001-1.035 Urine Protein Trace H Negative Urine Ketones Negative Negative Urine Blood Negative Negative /uL Urine Nitrite Negative Negative Urine Bilirubin Negative Negative Urine Urobilinogen Normal Negative mg/dL Urine Leukocyte Esterase 2+ Negative /uL Urine RBC 4 0 - 4 /hpf Urine Microscopic WBC 11 H 0-5 /HPF Urine Squamous Epithelial Cells Few <5 /hpf Urine Bacteria None seen None Seen /hpf Urine Hyaline Casts Few 0 - 2 /lpf Urine Glucose Normal Normal mg/dL Test 03/12/25 18:00 Range/Units Lactic Acid Level 1.4 0.4-2.0 mmol/L Lipase 27 12-53 U/L Examination: GENERAL:Normal, HEENT:Normal (No icterus), ABDOMEN:Normal (Flat, no scars, no hernias, no masses, soft depressible, right upper quadrant t enderness with positive Ashley's, no rebound, no guarding no right lower quadrant tenderness) Problem List/Assessment/Plan Problems: (1) Acute cholecystitis Assessment and Plan Mrs. Nobles is a 65-year-old female who presented with the acute cholecystitis, ultrasound showing gallstones, gallbladder wall thickening to 5.9 mm and pericholecystic fluid. Patient does not have any LFT abnormalities, although CBD is 8.[address] also shows questionable questionable dilation of the appendix, but on physical exam she is not tender in the right lower quadrant, her tenderness is exquisite on the right upper quadrant. Patient will benefit from laparoscopic cholecystectomy, possible open. Procedure, risks, benefits, complications, and alternatives discussed with the patient and niece. She would like to proceed with surgery as planned. 1. Scheduled to OR today for laparoscopic cholecystectomy, possible open 2. NPO except medications 3. Continue with ceftriaxone 4. Pain and nausea control Plan discussed with Plan discussed with: Patient, Other (Niece) Visit Coding Surgery Date of Service if different f: Mar 13, 2025 Billing Provider: BETTYE SOL MD Surgery Visit Codes: 10757 - INP CONSULT <110 MIN BETTYE SOL MD Mar 13, 2025 11:42
[2025-03-13] MEDS ORDERED: SODIUM CHLORIDE LOCK 10 ML ONE (12:03)
[2025-03-13] MEDS ORDERED: PHENYLEPHRINE HCL 10 MG/ML VL ONE (12:03)
[2025-03-13] MEDS: BUPIVACAINE HCL 0.25% P/F 10 ML VIAL ONE (12:08)
[2025-03-13] MEDS ORDERED: NALOXONE HCL 0.4 MG/ML VIAL IV PRN (14:00)
[2025-03-13] MEDS ORDERED: ONDANSETRON HCL 4 MG/2 ML VIAL IV PRN (14:00)
[2025-03-13] MEDS ORDERED: HYDROmorphone HCL 2 MG/ML VL/or syr IV PRN (14:00)
[2025-03-13] MEDS ORDERED: fentaNYL CITRATE 100 MCG/2 ML VL IV PRN (14:00)
[2025-03-13] MEDS ORDERED: FLUMAZENIL 0.1 MG/ML INJ 10ML MDV IV PRN (14:00)
--- NOTE | 2025-03-13 14:06 | ECG ---
[facility] Test Date: 2025-03-12 Test Time: 16:18:14 Pat Name: ODALYS PEREZ Department: [facility] ED Patient ID: [id number] Room: 0251 A Gender: F Camp Boss: zhanna : 1960 Requested By: EMERGENCY EMERGENCY Order Number: [id number] Reading MD: Pedro Mcclain Measurements Intervals [place] Rate: 89 P: 57 ND: 143 QRS: 35 QRSD: 93 T: 60 QT: 360 QTc: 439 Interpretive Statements Sinus rhythm Borderline ST elevation, anterior leads Electronically Signed On 03-14-2025 22:11:43 PDT by Pedro Mcclain Please click the below link to view image of tracing.
[2025-03-13] MEDS: hydrALAZINE HCL 20 MG/ML VL ONE (14:21)
[2025-03-13] MEDS: hydrALAZINE HCL 20 MG/ML VL IV PRN (14:28)
--- NOTE | 2025-03-13 14:32 | DVHOP2 ---
Operative Report - 2 Report Details Date: 03/13/25 Preop Diagnosis: Acute cholecystitis with possible appendicitis Postop Diagnosis: Acute cholecystitis Mid appendix dilatation and hard Surgeon: John Caba MD Anesthesiologist: Francis Paula CRNA Anesthesia: General Drains: None Implant: None Consent: The patient was informed of the risks and benefits of the procedure. These include but are not limited to complications of anesthesia, postoperative infection, incomplete relief of symptoms, recurrence of symptoms, damage to blood vessels, nerves and tendons, deep venous thrombosis, pulmonary embolism and possible need for repeat surgery in the future. Complications: None Estimated Blood Loss: 5 mL Findings: Acutely inflamed gallbladder with dense omental adhesions to the anterior aspect of the gallbladder. Mid appendix dilatation and hard Indications for Surgery: Acute cholecystitis with possible acute appendicitis (due to CT findings) Name of Procedure Performed Laparoscopic cholecystectomy and laparoscopic appendectomy Procedure Details Procedure Details: Upon arriving to the operating room the patient was transferred to the operating table and placed in the supine position with the arms extended. General endotracheal anesthesia was induced. Time-out was observed. Patient was prepped and draped in the standard sterile surgical fashion with chlorhexidine. I then proceeded to make a curvilinear infraumbilical incision and carried the dissection down to fascia. Once at the fascia I grasped the umbilical stalk with a Oliva clamp and walked it down to its base. I then elevated the umbilical stalk and gained entry into the peritoneal cavity utilizing Alyssa technique. I then placed a fascia retention suture in gaiztl-yn-gyiyb fashion with 0 Vicryl. Scherer cannula was then introduced and pneumoperitoneum established to 15 mmHg with toleration. I then introduced the camera and surve yed the entry site, no injuries. Patient was then placed in the reverse Trendelenburg iijim-jaoq-fa position. I then placed 3 5 mm trocars under direct vision at the epigastric area, right midclavicular below the rib area, and right flank. I then directed my attention to the liver and gallbladder area. A grasper was utilized to grab the gallbladder at its fundus and elevated several cephalad into the right shoulder. Gallbladder had dense omental adhesions to its anterior wall. These adhesions were taken down with a combination of blunt and cautery. Once the omentum was completely off of the gallbladder I was able to identify the infundibulum. At this point the gallbladder appeared distended and inflamed. A 2nd grasper was utilized to grasp the infundibulum and retract laterally. I then incised the peritoneum on either side of the gallbladder at its base, and carried it towards the liver. Calot triangle was exposed. I then fully skeletonized cholesterol angle and identified 2 structures entering the gallbladder, cystic artery and cystic duct. Both the artery and duct were fully skeletonize also, achieving critical view. I then placed 2 5 mm clips proximal on the cystic artery and 1 distal. I also placed 3 5 mm clips proximal on the cystic duct and 1 distal. I then proceeded to transect the cystic artery and then the cystic duct. The gallbladder was then removed from the liver fossa with electrocautery. I had some bile spillage from a small hole in the gallbladder. There was some oozing from the gallbladder fossa that was cauterized, hemostasis achieved. Once the gallbladder was completely off the liver, I placed it in the Endo-Catch bag and removed it from the peritoneal cavity through the umbilical site. I then took a look at the gallbladder fossa no other areas of oozing identified, clips were in place. I then performed serial irrigations in the gallbladder fossa and over the liver until the effluent was clear. I then proceeded to direct my attention to the right lower quadrant, due to the CT findings of a mid dilation of the appendix. The appendix was noted to be dilated at its midportion, and it was rock hard. No surrounding inflammatory changes though. At this time I proceeded to break scrub and contact family, with the appendix findings. I recommended surgical removal of the appendix given the concerning mid dilation and rock hard at this portion. I obtained consent from the patient's sister Rae Nobles, and the patient's niece Kathleen Hendrix to proceed with the laparoscopic appendectomy. I then placed 2 additional 5 mm trocars, 1 in the suprapubic area and 1 in the left lower quadrant. Patient was then placed in the Trendelenburg position right side up. The appendix base was identified and I made a mesenteric rent at the base. I then proceeded to transect the appendix with a 45 mm Endo-YESSY white load. I then utilized another 45 mm Endo-YESSY white load to transect the mesoappendix. The appendix was placed in the Endo-Catch bag and extracted out of the peritoneal cavity. I then proceeded to inspect both the staple lines. I noticed some oozing coming from the mesenteric staple line, for which I placed 2 5 mm clips along the staple line. Hemostasis achieved. I then proceeded to take another look at the gallbladder fossa. No bleeding noted coming from the fossa. This concluded the intraperitoneal portion of the surgery. All counts complete and correct. All 5 mm ports were removed under direct visualization, no bleeding coming from the abdominal wall at any other sites. Peritoneal cavity was allowed to desufflate completely. I then closed the previously placed [id number]-wc-qyqaq suture at the umbilical area. All skin sites were closed with 4-0 Monocryl and Dermabond. 0.25% Marcaine was used as local anesthetic. Patient tolerated the procedure well and was transferred to PACU in stable condition. Specimen: Gallbladder and contents Appendix Condition Stable Disposition Still a Patient JOHN SOL MD Mar 13, 2025 14:32
--- NOTE | 2025-03-13 14:52 | DVHPN2 ---
Subjective Patient denies any symptoms Reviewed: Care Plan, H&P, Labs Changes from previous H/P or p: No Changes General: Per HPI Objective Vitals Vital Signs Date Time Temp Pulse Resp B/P (MAP) Pulse Ox O2 Delivery O2 Flow Rate FiO2 03/13/25 14:28 166/73 03/13/25 08:43 97.9 92 16 96 97.9 03/13/25 03:44 Room Air* 0 21 Intake/Output Intake and Output 03/13/25 07:00 Intake Total 0 ml Output Total 700 ml Balance -700 ml Intake Oral 0 ml Output Urine Total 700 ml Exam Patient is assessed in the recovery room General Appearance: Alert, Cooperative, No acute distress HEENT: Atraumatic, PERRLA Lungs: Clear to auscultation, Normal air movement Cardiovascular: Normal S1, Normal S2 Abdomen: Normal bowel sounds, Soft, No tenderness Musculoskeletal: Normal sensory function, Normal motor function Neuro: Normal gait, Normal speech Skin: Dry, Intact Psych/Mental Status: Mental status NL, Mood NL Medications Current Medications Medications Dose Ordered Sig/Marisa Route Start Time Stop Time Status Last Admin Dose Admin Pantoprazole Sodium 40 mg DAILY IV 03/14/25 10:00 Ondansetron HCl 4 mg Q4HP PRN IV 03/12/25 23:15 Morphine Sulfate 2 mg Q4HPRN PRN IV 03/12/25 23:15 Diagnostic Test (Pha) 1 strip Q6HR 03/13/25 00:00 03/13/25 00:09 1 STRIP Insulin Human Regular Q6HR SC 03/13/25 00:00 03/13/25 00:19 3 UNITS Dextrose 50 ml UD PRN IV 03/12/25 23:15 Hydralazine HCl 5 mg Q10M PRN IV 03/13/25 14:00 03/13/25 14:51 03/13/25 14:28 5 MG Oxycodone HCl 10 mg ONCE PRN PO 03/13/25 14:00 03/13/25 16:00 Potassium Chloride/Dextrose/ Sod Cl 1,000 ml @ 100 mls/hr Q10H IV 03/13/25 14:15 UNV Laboratory Results Laboratory Tests 03/13/25 06:00 Chemistry Test 03/12/25 18:00 03/13/25 06:00 Albumin 4.5 g/dL (3.2-4.8) 3.5 g/dL (3.2-4.8) Calcium Level 10.0 mg/dL (8.7-10.4) 8.6 mg/dL (8.7-10.4) L Total Protein 8.0 g/dL (5.7-8.2) 6.2 g/dL (5.7-8.2) Coagulation Test 03/12/25 23:30 Prothrombin Time 10.7 sec (9.3-11.8) Prothrombin Time INR 1.01 (0.9-1.15) Activated Partial Thromboplast Time 25.4 SEC (24.5-34.5) Lipid panel Test 03/12/25 18:00 Lipase 27 U/L (12-53) LFT Test 03/12/25 18:00 03/13/25 06:00 Alanine Aminotransferase (ALT) 30 U/L (7-40) 60 U/L (7-40) H Alkaline Phosphatase 92 U/L (46-116) 81 U/L (46-116) Aspartate Amino Transferase (AST) 32 U/L (13-40) 71 U/L (13-40) H Total Bilirubin 0.7 mg/dL (0.2-1.0) 0.7 mg/dL (0.2-1.0) Urinalysis Test 03/12/25 21:00 Urine Color Light-yellow (Yellow) Urine Clarity Clear (Clear) Urine pH 7.0 (5.0-9.0) Urine Specific [place] 1.011 (1.001-1.035) Urine Protein Trace (Negative) H Urine Ketones Negative (Negative) Urine Blood Negative /uL (Negative) Urine Nitrite Negative (Negative) Urine Bilirubin Negative (Negative) Urine Urobilinogen Normal mg/dL (Negative) Urine Leukocyte Esterase 2+ /uL (Negative) Urine RBC 4 /hpf (0 - 4) Urine Microscopic WBC 11 /HPF (0-5) H Urine Squamous Epithelial Cells Few /hpf (<5) Urine Bacteria None seen /hpf (None Seen) Urine Hyaline Casts Few /lpf (0 - 2) Urine Glucose Normal mg/dL (Normal) Labs and/or images reviewed: Labs reviewed by me, Image(s) reviewed by me Assessment/Plan Assessment/Plan Impression: -acute appendicitis -cholelithiasis with a cholecystitis -dementia -hypothyroidism -primary hypertension Plan: -surgical consultation: Status post lap appy/lap cholecystectomy -advance diet per surgery -start IV fluids with potassium replacement -PPI -SCDs -repeat labs in a.m. -pain management Total time spent with patient discussing and formulating plan of care: 35 minutes. This medical document was created using an electronic medical record system with [employer] dictation system. Although this document has been carefully reviewed, there may still be some phonetic and typographical errors. These areas are purely typographical due to imperfections of the software programs, and do not reflect any compromise in the patient's medical care. Plan discussed with: Patient, Other (RN) My Orders Orders - HEVER SNOW NP Procedure Category Date Status Time D5w/Sod Chl 0.45%/Kcl PHA 03/13/25 Logged [id number] 14:15 Date of Service: Mar 13, 2025 Billing Provider: HEVER SNOW NP Common Visit Codes: [id number] INP/OBS CARE(HIGH) HEVER SNOW NP Mar 13, 2025 14:52
[2025-03-13] MEDS ORDERED: hydrALAZINE HCL 20 MG/ML VL IV PRN (15:15)
[2025-03-13] MEDS: D5W/SOD CHL 0.45%/KCL 40MEQ 1,000 ML IV SCH (16:34)
[2025-03-13] MEDS: ONDANSETRON HCL 4 MG/2 ML VIAL IV PRN (22:51)
[2025-03-13] MEDS: HYDROmorphone HCL 2 MG/ML VL/or syr IV ONE (22:52)
[2025-03-14] VITALS (7 sets, daily range): BP systolic 125–157; BP diastolic 61–82; PULSE 84–91; RESP 17–18; TEMP 97.7–98.1; O2SAT 0–100
[2025-03-14 06:49] LABS: Hematocrit 28.5 % (36.0-46.0); Hemoglobin 9.6 g/dL (12.2-16.2); Mean Corpuscular Hemoglobin 28.3 pg (28.0-32.0); Mean Corpuscular Volume 84.3 fL (80.0-100.0); Nucleated Red Blood Cells % 0.0 %
[2025-03-14 07:05] LABS: Albumin 3.5 g/dL (3.2-4.8); Anion Gap 8 (5-15); BUN/Creatinine Ratio 12.2 (10.0-20.0); Blood Urea Nitrogen 10 mg/dL (9-23); Calcium 8.9 mg/dL (8.7-10.4); Carbon Dioxide 30 mmol/L (20-31); Chloride 106 mmol/L (98-107); Potassium 4.0 mmol/L (3.5-5.1); Sodium 144 mmol/L (136-145); Total Protein 6.2 g/dL (5.7-8.2)
[2025-03-14 07:09] LABS: Alanine Aminotransferase 324 U/L (7-40); Alkaline Phosphatase 205 U/L (46-116); Bilirubin, Total 2.0 mg/dL (0.2-1.0); Glucose 130 mg/dL (74-106)
[2025-03-14] MEDS: PANTOPRAZOLE 40 MG/10 ML VIAL INJ IV SCH (10:33)
[2025-03-14] MEDS ORDERED: DEXTROSE (50%) 50ML SYRG IV PRN (12:00)
--- NOTE | 2025-03-14 12:10 | DVHPN2 ---
Subjective Abdominal pain Reviewed: Care Plan, H&P, Labs Changes from previous H/P or p: No Changes General: Per HPI Objective Vitals Vital Signs Date Time Temp Pulse Resp B/P (MAP) Pulse Ox O2 Delivery O2 Flow Rate FiO2 03/14/25 09:00 97.8 89 17 157/82 (107) 100 97.8 03/13/25 20:00 Nasal Cannula* 2 28 Intake/Output Intake and Output 03/14/25 07:00 Intake Total 1225 ml Output Total 1050 ml Balance 175 ml Intake Oral 825 ml IV Total 400 ml Output Urine Total 1050 ml Exam Patient is assessed in the recovery room General Appearance: Alert, Oriented X3, Cooperative, No acute distress HEENT: Atraumatic Lungs: Clear to auscultation, Normal air movement Cardiovascular: Normal S1, Normal S2 Abdomen: Normal bowel sounds, Soft, No tenderness, Other (Abdominal DSG intact) Musculoskeletal: Normal sensory function, Normal motor function Neuro: Normal gait, Normal speech Skin: Dry, Intact Psych/Mental Status: Mental status NL, Mood NL Medications Current Medications Medications Dose Ordered Sig/Marisa Route Start Time Stop Time Status Last Admin Dose Admin Pantoprazole Sodium 40 mg DAILY IV 03/14/25 10:00 03/14/25 10:33 40 MG Ondansetron HCl 4 mg Q4HP PRN IV 03/12/25 23:15 03/13/25 22:51 4 MG Morphine Sulfate 2 mg Q4HPRN PRN IV 03/12/25 23:15 Dextrose 50 ml UD PRN IV 03/12/25 23:15 Hydralazine HCl 10 mg Q6HP PRN IV 03/13/25 15:15 UNV Diagnostic Test (Pha) 1 strip ACHS 03/14/25 17:00 UNV Insulin Human Regular ACHS SC 03/14/25 17:00 UNV Dextrose 50 ml UD PRN IV 03/14/25 12:00 UNV Sodium Chloride 1,000 ml @ 75 mls/hr [id number] IV 03/14/25 12:00 UNV Laboratory Results Laboratory Tests 03/14/25 06:33 Chemistry Test 03/14/25 06:33 Albumin 3.5 g/dL (3.2-4.8) Calcium Level 8.9 mg/dL (8.7-10.4) Total Protein 6.2 g/dL (5.7-8.2) LFT Test 03/14/25 06:33 Alanine Aminotransferase (ALT) 324 U/L (7-40) H Alkaline Phosphatase 205 U/L (46-116) H Aspartate Amino Transferase (AST) 225 U/L (13-40) H Direct Bilirubin 1.3 mg/dL (<0.3) H Total Bilirubin 2.0 mg/dL (0.2-1.0) H Urinalysis Test 03/12/25 21:00 Urine Color Light-yellow (Yellow) Urine Clarity Clear (Clear) Urine pH 7.0 (5.0-9.0) Urine Specific [place] 1.011 (1.001-1.035) Urine Protein Trace (Negative) H Urine Ketones Negative (Negative) Urine Blood Negative /uL (Negative) Urine Nitrite Negative (Negative) Urine Bilirubin Negative (Negative) Urine Urobilinogen Normal mg/dL (Negative) Urine Leukocyte Esterase 2+ /uL (Negative) Urine RBC 4 /hpf (0 - 4) Urine Microscopic WBC 11 /HPF (0-5) H Urine Squamous Epithelial Cells Few /hpf (<5) Urine Bacteria None seen /hpf (None Seen) Urine Hyaline Casts Few /lpf (0 - 2) Urine Glucose Normal mg/dL (Normal) Labs and/or images reviewed: Labs reviewed by me, Image(s) reviewed by me Assessment/Plan Assessment/Plan Impression: -acute appendicitis -cholelithiasis with a cholecystitis -dementia -hypothyroidism -primary hypertension Plan: Events: elevated LFTs post op. -surgical consultation: Post op recommendations appreciated -advance diet per surgery -Change IVF to NS at 75 -PPI -SCDs -repeat labs in a.m. -pain management Total time spent with patient discussing and formulating plan of care: 35 minutes. This medical document was created using an electronic medical record system with [employer] dictation system. Although this document has been carefully reviewed, there may still be some phonetic and typographical errors. These areas are purely typographical due to imperfections of the software programs, and do not reflect any compromise in the patient's medical care. Plan discussed with: Patient, Other (RN) My Orders Orders - HEVER SNOW NP Procedure Category Date Status Time Glucose Blood PHA 03/14/25 Logged (Accu-Chek Comfort 17:00 Insulin R (Human) PHA 03/14/25 Logged (Insulin R) 17:00 Dextrose 50% Syringe PHA 03/14/25 Logged 12:00 Sodium Chloride 0.9% PHA 03/14/25 Logged 12:00 Comprehensive LAB 03/14/25 Logged Metabolic Panel 11:59 Morphine Sulfate PHA 03/14/25 Verified Injection 12:15 Date of Service: Mar 14, 2025 Billing Provider: HEVER SNOW NP Common Visit Codes: [id number] INP/OBS CARE(HIGH) HEVER SNOW NP Mar 14, 2025 12:10
[2025-03-14] MEDS: SODIUM CHLORIDE 0.9% 1,000 ML IV SCH (12:23)
[2025-03-14] MEDS: MORPHINE SULFATE 4 MG/ML SYR/VIAL IV PRN (12:26)
[2025-03-14] MEDS: InsuLIN REG 1unit/0.01ml Soln (100units/ml) SC SCH (12:33)
[2025-03-14 13:53] LABS: Albumin 3.3 g/dL (3.2-4.8); Anion Gap 7 (5-15); BUN/Creatinine Ratio 8.8 (10.0-20.0); Calcium 8.7 mg/dL (8.7-10.4); Carbon Dioxide 30 mmol/L (20-31); Chloride 107 mmol/L (98-107); Potassium 3.9 mmol/L (3.5-5.1); Sodium 144 mmol/L (136-145); Total Protein 5.9 g/dL (5.7-8.2)
[2025-03-14 13:54] LABS: Alanine Aminotransferase 286 U/L (7-40); Alkaline Phosphatase 193 U/L (46-116); Bilirubin, Total 1.6 mg/dL (0.2-1.0); Blood Urea Nitrogen 6 mg/dL (9-23); Glucose 131 mg/dL (74-106)
--- NOTE | 2025-03-14 15:15 | ECG ---
[facility] Test Date: 2025-03-13 Test Time: 10:32:23 Pat Name: ODALYS PEREZ Department: [facility] Room: 0251 A Gender: F [employer] Aide: CO : 1960 Requested By: BETTYE VELASQUEZ Order Number: [id number] Reading MD: Pedro Mcclain Measurements Intervals [place] Rate: 88 P: 54 MI: 142 QRS: 59 QRSD: 90 T: 59 QT: 330 QTc: 400 Interpretive Statements Sinus rhythm Borderline ST elevation, anterior leads Electronically Signed On 03-14-2025 21:09:51 PDT by Pedro Mcclain Please click the below link to view image of tracing.
[2025-03-14] MEDS: ACCU-CHEK COMFORT CURVE STRIP VI SCH (17:37)
--- NOTE | 2025-03-14 23:58 | DVHPN2 ---
Progress Note - Surgical Date Seen: Mar 14, 2025 Post op day Post op day: 1 Subjective Patient reports: Feels better (Patient doing well post surgery, tolerating diet, and no abdominal pain complaints.) Review of Systems: Deferred Objective Vital signs Vital Sign Date Time Temp Pulse Resp B/P (MAP) Pulse Ox O2 Delivery O2 Flow Rate FiO2 03/14/25 21:00 97.9 91 17 157/75 (102) 0 97.9 03/14/25 08:00 Room Air* 0 21 Total Intake and Output 03/13/25 03/13/25 03/14/25 15:00 23:00 07:00 Intake Total 200 ml 325 ml 700 ml Output Total 500 ml 550 ml Balance 200 ml -175 ml 150 ml Medications Current Medications Medications Dose Ordered Sig/Marisa Route Start Time Stop Time Status Last Admin Dose Admin Pantoprazole Sodium 40 mg DAILY IV 03/14/25 10:00 03/14/25 10:33 40 MG Ondansetron HCl 4 mg Q4HP PRN IV 03/12/25 23:15 03/13/25 22:51 4 MG Hydralazine HCl 10 mg Q6HP PRN IV 03/13/25 15:15 UNV Diagnostic Test (Pha) 1 strip ACHS 03/14/25 17:00 03/14/25 22:00 1 STRIP Insulin Human Regular ACHS SC 03/14/25 17:00 Dextrose 50 ml UD PRN IV 03/14/25 12:00 Sodium Chloride 1,000 ml @ 75 mls/hr [id number] IV 03/14/25 12:00 03/14/25 12:23 75 MLS/HR Morphine Sulfate 2 mg Q4HPRN PRN IV 03/14/25 12:15 03/14/25 12:26 2 MG Levothyroxine Sodium 150 mcg QAM@0600 PO 03/15/25 06:00 Laboratory Laboratory Tests 03/14/25 13:21 03/14/25 06:33 Test 03/14/25 13:21 Range/Units Serum Glucose 131 H 74-106 mg/dL Examination: GENERAL:Normal, HEENT:Normal (No icterus), ABDOMEN:Normal (Nondistended, flat, depressible, soft, incision sites with Dermabond in place, appropriate tenderness, no rebound ) Labs and/or images reviewed: Labs reviewed by me (LFT shows total bilirubin elevation to 2 from 0.7, direct predominant at 1.3.) Problem List/Assessment/Plan Problems: (1) Acute cholecystitis Assessment and Plan Mrs. Nobles is a 65-year-old female who presented with the acute cholecystitis and concerning findings on CT scan regarding the appendix. Patient is currently postop day 1 from laparoscopic cholecystectomy and laparoscopic appendectomy. Patient is doing very well and without any complaints. The only problem is that patient had an elevation of the total bilirubin level from 0.7-2, direct predominant 3. For this reason patient will need to stay overnight for reassessment of the lft in the morning . 1. Low-fat diet 2. Labs in a.m. to include liver function tests My Orders My Orders Orders - BETTYE SOL MD Procedure Category Date Status Time Electrocardigram EKG 03/14/25 Resulted 10:04 Plan discussed with Plan discussed with: Patient Visit Coding Surgery Date of Service if different f: Mar 14, 2025 Billing Provider: BETTYE SOL MD Surgery Visit Codes: [id number] INP/OBS CARE(HIGH) BETTYE SOL MD Mar 14, 2025 23:58
[2025-03-15] VITALS (7 sets, daily range): BP systolic 110–159; BP diastolic 55–84; PULSE 86–109; RESP 16–18; TEMP 97.4–98.9; O2SAT 90–99
[2025-03-15 04:55] LABS: Hematocrit 29.1 % (36.0-46.0); Hemoglobin 9.7 g/dL (12.2-16.2); Mean Corpuscular Hemoglobin 28.4 pg (28.0-32.0); Mean Corpuscular Volume 85.2 fL (80.0-100.0); Nucleated Red Blood Cells % 0.0 %
[2025-03-15 05:18] LABS: Albumin 3.3 g/dL (3.2-4.8); Anion Gap 7 (5-15); BUN/Creatinine Ratio 10.0 (10.0-20.0); Calcium 8.8 mg/dL (8.7-10.4); Chloride 106 mmol/L (98-107); Potassium 3.8 mmol/L (3.5-5.1); Total Protein 6.2 g/dL (5.7-8.2)
[2025-03-15 05:19] LABS: Bilirubin, Total 0.8 mg/dL (0.2-1.0)
[2025-03-15 05:21] LABS: Carbon Dioxide 33 mmol/L (20-31); Glucose 126 mg/dL (74-106); Sodium 146 mmol/L (136-145)
[2025-03-15 05:22] LABS: Alanine Aminotransferase 236 U/L (7-40); Alkaline Phosphatase 188 U/L (46-116); Bilirubin, Direct 0.4 mg/dL (<0.3); Blood Urea Nitrogen 6 mg/dL (9-23)
[2025-03-15] MEDS: LEVOTHYROXINE SODIUM 50 MCG TAB PO SCH (06:02)
[2025-03-15] MEDS ORDERED: AMLO1TAB22 PO (10:01)
[2025-03-15] MEDS ORDERED: LEVO500T91 PO (10:01)
[2025-03-15] MEDS ORDERED: METR-344 PO (10:01)
--- NOTE | 2025-03-15 10:26 | DVHDS2 ---
Discharge Summary Date of Admission Mar 12, 2025 at 23:15 Date of Discharge: Mar 15, 2025 Admitting Diagnosis Acute abdominal pain Labs/Diagnostic Data: Laboratory Results Test 03/15/25 06:18 03/15/25 04:15 03/12/25 23:30 03/12/25 21:00 POC Glucose 137 mg/dl (70-106) White Blood Count 11.3 10^3/uL (4.4-10.8) Red Blood Count 3.42 10^6/uL (4.0-5.20) Hemoglobin 9.7 g/dL (12.2-16.2) Hematocrit 29.1 % (36.0-46.0) Mean Corpuscular Volume 85.2 fL (80.0-100.0) Mean Corpuscular Hemoglobin 28.4 pg (28.0-32.0) Mean Corpuscular Hemoglobin Concent 33.3 g/dL (32.0-36.0) Red Cell Distribution Width 13.2 % (11.8-14.3) Platelet Count 227 10^3/uL (140-450) Mean Platelet Volume 8.5 fL (6.9-10.8) Neutrophils (%) (Auto) 64.0 % (37.0-80.0) Lymphocytes (%) (Auto) 26.4 % (10.0-50.0) Monocytes (%) (Auto) 8.2 % (0.0-12.0) Eosinophils (%) (Auto) 1.0 % (0.0-7.0) Basophils (%) (Auto) 0.4 % (0.0-2.0) Neutrophils # (Auto) 7.2 10 ^3/uL (1.6-8.6) Lymphocytes # (Auto) 3.0 10 ^3/uL (0.4-5.4) Monocytes # (Auto) 0.9 10 ^3/uL (0-1.3) Eosinophils # (Auto) 0.1 10 ^3/uL (0-0.8) Basophils # (Auto) 0 10 ^3/uL (0-0.2) Nucleated Red Blood Cells 0.0 % Sodium Level 146 mmol/L (136-145) Potassium Level 3.8 mmol/L (3.5-5.1) Chloride Level 106 mmol/L (98-107) Carbon Dioxide Level 33 mmol/L (20-31) Anion Gap 7 (5-15) Blood Urea Nitrogen 6 mg/dL (9-23) Creatinine 0.60 mg/dL (0.550-1.02) Glomerular Filtration Rate Calc 100 mL/min (>90) BUN/Creatinine Ratio 10.0 (10.0-20.0) Serum Glucose 126 mg/dL (74-106) Calcium Level 8.8 mg/dL (8.7-10.4) Total Bilirubin 0.8 mg/dL (0.2-1.0) Direct Bilirubin 0.4 mg/dL (<0.3) Aspartate Amino Transferase (AST) 92 U/L (13-40) Alanine Aminotransferase (ALT) 236 U/L (7-40) Alkaline Phosphatase 188 U/L (46-116) Total Protein 6.2 g/dL (5.7-8.2) Albumin 3.3 g/dL (3.2-4.8) Prothrombin Time 10.7 sec (9.3-11.8) Prothrombin Time INR 1.01 (0.9-1.15) Activated Partial Thromboplast Time 25.4 SEC (24.5-34.5) Urine Color Light-yellow (Yellow) Urine Clarity Clear (Clear) Urine pH 7.0 (5.0-9.0) Urine Specific [place] 1.011 (1.001-1.035) Urine Protein Trace (Negative) Urine Ketones Negative (Negative) Urine Blood Negative /uL (Negative) Urine Nitrite Negative (Negative) Urine Bilirubin Negative (Negative) Urine Urobilinogen Normal mg/dL (Negative) Urine Leukocyte Esterase 2+ /uL (Negative) Urine RBC 4 /hpf (0 - 4) Urine Microscopic WBC 11 /HPF (0-5) Urine Squamous Epithelial Cells Few /hpf (<5) Urine Bacteria None seen /hpf (None Seen) Urine Hyaline Casts Few /lpf (0 - 2) Urine Glucose Normal mg/dL (Normal) Test 03/12/25 18:00 Lactic Acid Level 1.4 mmol/L (0.4-2.0) Lipase 27 U/L (12-53) Other Laboratory Tests 03/15/25 04:15 Brief Hx & Hospital Course: History of Present Illness 65-year-old female presents for evaluation of abdominal pain. Patient reports a one day history of diffuse abdominal pain after eating a bread stick. Reports episodes of nausea with vomiting as well as diarrhea. No fever or chills. Course of hospitalization: Patient was started on empiric antibiotic therapy. Surgical consultation was obtained with the patient undergoing laparoscopic cholecystectomy and appendectomy on 03/13/2025. Patient's LFTs were mildly elevated, trending down after surgery. Patient was tolerating oral intake. Patient will be discharged home today and continued on antibiotic therapy with Levaquin 500 mg p.o. daily x5 days, Flagyl 500 mg p.o. 3 times a day x5 days, as well as being prescribed amlodipine 5 mg p.o. daily for noted hypertension in the hospital. Patient will be ambulated by primary nurse prior to being discharged. She will follow up with her PCP in 1-[address] Murry, surgeon in 7-10 days. Patient was agreeable with discharge plan. All questions answered. Physical examination General: Alert and Oriented x3. No acute distress. Well-nourished. Eyes: EOMI. Anicteric. Legally blind HENT: Moist mucous membranes. Lungs: Clear to auscultation bilaterally. No accessory muscle use. Cardiovascular: Regular rate and rhythm. No murmur. No JVD. Abdomen: Soft, non-tender and non-distended. No palpable masses. Dressing dry and intact Extremities: No edema. Non-tender. Skin: No rashes or lesions. Warm. Neurologic: No focal neurological deficits. CN II-XII grossly intact, but not individually tested. Psychiatric: Cooperative. Appropriate mood and affect. Total time spent with patient discussing and formulating plan of care: 35 minutes. This medical document was created using an electronic medical record system with [employer] dictation system. Although this document has been carefully reviewed, there may still be some phonetic and typographical errors. These areas are purely typographical due to imperfections of the software programs, and do not reflect any compromise in the patient's medical care. Consults/Reason for consult Surgery: Appendicitis, cholecystitis Operations or Procedures 03/13/2025: Lap appendectomy, lap cholecystectomy Condition at Discharge: Fair Final Diagnosis/Problems List Acute cholecystitis, Appendicitis Secondary diagnosis: -acute appendicitis -cholelithiasis with cholecystitis -dementia -legally blind -hypothyroidism -primary hypertension Discharge Disposition: Home Discharge Instruct/Medications Diet: Consistent carbohydrate Activity: Light activity Follow Up/Referral: Dr. Murry in 7-10 days PCP in 1-2 weeks Medications: Levaquin 500mg po daily x 5 days Flagyl 500mg po TID x 5 days Amlodipine 5mg po daily Continue all home medications Scheduled Amlodipine Besylate (Amlodipine Besylate), 1 TAB PO DAILY Levofloxacin Hemihydrate (Levaquin 500 Mg), 1 TAB PO DAILY Metronidazole (Flagyl), 1 TAB PO TID 36 Discharge Statement: "Patient was advised to return to the ER or call 911 if any headaches, dizziness, shortness of breath, chest pain, abdominal pain, bleeding, fevers, or worsening of medical condition. Patient was counseled about treatment plan, medications, possible side effects, patientverbalized understanding. All questions were answered to the best of my ability. This discharge took greater then 30 minutes in planning, reviewing documentation, counseling the patient, and discussing with other team members." ASSESSMENT ASSESSMENT Assessment Acute cholecystitis, Appendicitis Date of Service: Mar 15, 2025 Billing Provider: HEVER SNOW NP Common Visit Codes: [id number] INP/OBS CARE(HIGH) HEVER SNOW NP Mar 15, 2025 10:26
--- NOTE | 2025-03-15 19:49 | DVHPN2 ---
Progress Note - Surgical Date Seen: Mar 15, 2025 Post op day Post op day: 2 Subjective Patient reports: Feels better (Patient feeling well, no complaints of abdominal pain, tolerating diet, no nausea, no vomiting.) Review of Systems: Deferred Objective Vital signs Vital Sign Date Time Temp Pulse Resp B/P (MAP) Pulse Ox O2 Delivery O2 Flow Rate FiO2 03/15/25 17:00 98.8 107 17 154/65 (94) 90 98.8 03/15/25 08:00 Room Air* 0 21 Total Intake and Output 03/14/25 03/14/25 03/15/25 14:59 22:59 06:59 Intake Total 1000 ml 650 ml 650 ml Output Total 900 ml 1800 ml Balance 1000 ml -250 ml -1150 ml Medications Current Medications Medications Dose Ordered Sig/Marisa Route Start Time Stop Time Status Last Admin Dose Admin Pantoprazole Sodium 40 mg DAILY IV 03/14/25 10:00 03/15/25 08:35 40 MG Ondansetron HCl 4 mg Q4HP PRN IV 03/12/25 23:15 03/13/25 22:51 4 MG Hydralazine HCl 10 mg Q6HP PRN IV 03/13/25 15:15 UNV Diagnostic Test (Pha) 1 strip ACHS 03/14/25 17:00 03/15/25 17:33 1 STRIP Insulin Human Regular ACHS SC 03/14/25 17:00 03/15/25 17:34 2 UNITS Dextrose 50 ml UD PRN IV 03/14/25 12:00 Morphine Sulfate 2 mg Q4HPRN PRN IV 03/14/25 12:15 03/15/25 11:08 2 MG Levothyroxine Sodium 150 mcg QAM@0600 PO 03/15/25 06:00 03/15/25 06:02 150 MCG Amlodipine Besylate 5 mg DAILY PO 03/15/25 10:00 03/15/25 11:08 5 MG Laboratory Laboratory Tests 03/15/25 04:15 Test 03/15/25 04:15 Range/Units Serum Glucose 126 H 74-106 mg/dL Examination: GENERAL:Normal, HEENT:Normal (No icterus), ABDOMEN:Normal (Flat, soft, depressible, nontender, incision sites with skin glue in place and no surrounding signs of infection.) Labs and/or images reviewed: Labs reviewed by (Total bilirubin and direct bilirubin level went down to normal) Problem List/Assessment/Plan Assessment and Plan Mrs. Nobles is a 65-year-old female who presented with the acute cholecystitis and concerning findings on CT scan regarding the appendix. Patient is currently postop day 2 from laparoscopic cholecystectomy and laparoscopic appendectomy. Patient is doing very well and without any complaints. Today her total bilirubin and direct bilirubin levels are back to normal. Given that she has no pain complaints, tolerating diet, labs are back to normal; patient is cleared from surgical standpoint. 1. Cleared from surgical standpoint 2. Low-fat diet 3. No lifting over 10 lb for 6-8 weeks 4. Okay to shower, no swimming or bathing (for 2 weeks) 5. Recommend Tylenol and/or ibuprofen for baseline pain control, follow township clerk's directions 6. Follow-up with Dr. Murry at surgery Clinic in 2 weeks. Plan discussed with Plan discussed with: Patient Visit Coding Surgery Date of Service if different f: Mar 15, 2025 Billing Provider: BETTYE SOL MD Surgery Visit Codes: [id number] INP/OBS CARE(HIGH) BETTYE SOL MD Mar 15, 2025 19:49
[2025-03-16 01:00] VITALS: BP 128/65; PULSE 101; RESP 16; TEMP 98.7; O2SAT 90
[2025-03-16 05:00] VITALS: BP 99/56; PULSE 104; RESP 16; TEMP 98.4; O2SAT 92
[2025-03-16 08:15] VITALS: PULSE 90; RESP 17; O2SAT 95
[2025-03-16 09:00] VITALS: BP 143/72; PULSE 90; RESP 17; TEMP 98.1; O2SAT 89
--- NOTE | 2025-03-16 12:06 | DVHPN2 ---
Subjective Abdominal pain Reviewed: Care Plan, H&P, Labs Changes from previous H/P or p: No Changes General: Per HPI Objective Vitals Vital Signs Date Time Temp Pulse Resp B/P (MAP) Pulse Ox O2 Delivery O2 Flow Rate FiO2 03/16/25 09:59 143/72 03/16/25 09:00 98.1 90 17 89 98.1 03/15/25 20:00 Room Air* 0 21 Intake/Output Intake and Output 03/16/25 07:00 Intake Total 590 ml Balance 590 ml Intake Oral 590 ml # Voids 5 Exam Patient is assessed in the recovery room General Appearance: Alert, Oriented X3, Cooperative, No acute distress HEENT: Atraumatic, PERRLA Lungs: Clear to auscultation, Normal air movement Cardiovascular: Normal S1, Normal S2 Abdomen: Normal bowel sounds, Soft, No tenderness, Other Musculoskeletal: Normal sensory function, Normal motor function Neuro: Normal gait, Normal speech Skin: Dry, Intact Psych/Mental Status: Mental status NL, Mood NL Medications Current Medications Medications Dose Ordered Sig/Marisa Route Start Time Stop Time Status Last Admin Dose Admin Pantoprazole Sodium 40 mg DAILY IV 03/14/25 10:00 03/16/25 09:59 40 MG Ondansetron HCl 4 mg Q4HP PRN IV 03/12/25 23:15 03/13/25 22:51 4 MG Hydralazine HCl 10 mg Q6HP PRN IV 03/13/25 15:15 UNV Diagnostic Test (Pha) 1 strip ACHS 03/14/25 17:00 03/16/25 06:40 1 STRIP Insulin Human Regular ACHS SC 03/14/25 17:00 03/15/25 23:22 2 UNITS Dextrose 50 ml UD PRN IV 03/14/25 12:00 Morphine Sulfate 2 mg Q4HPRN PRN IV 03/14/25 12:15 03/15/25 11:08 2 MG Levothyroxine Sodium 150 mcg QAM@0600 PO 03/15/25 06:00 03/16/25 06:43 150 MCG Amlodipine Besylate 5 mg DAILY PO 03/15/25 10:00 03/16/25 09:59 5 MG Laboratory Results Laboratory Tests 03/15/25 04:15 Urinalysis Test 03/12/25 21:00 Urine Color Light-yellow (Yellow) Urine Clarity Clear (Clear) Urine pH 7.0 (5.0-9.0) Urine Specific [place] 1.011 (1.001-1.035) Urine Protein Trace (Negative) H Urine Ketones Negative (Negative) Urine Blood Negative /uL (Negative) Urine Nitrite Negative (Negative) Urine Bilirubin Negative (Negative) Urine Urobilinogen Normal mg/dL (Negative) Urine Leukocyte Esterase 2+ /uL (Negative) Urine RBC 4 /hpf (0 - 4) Urine Microscopic WBC 11 /HPF (0-5) H Urine Squamous Epithelial Cells Few /hpf (<5) Urine Bacteria None seen /hpf (None Seen) Urine Hyaline Casts Few /lpf (0 - 2) Urine Glucose Normal mg/dL (Normal) Labs and/or images reviewed: Labs reviewed by me, Image(s) reviewed by me Assessment/Plan Assessment/Plan Impression: -acute appendicitis -cholelithiasis with a cholecystitis -dementia -hypothyroidism -primary hypertension Plan: Events: Patient discharged yesterday. Patient did not leave the hospital secondary to family has been emergency. Plans to be discharged today. Until then nursing to ambulate patient. Some of spirometer q.1 hour while awake -surgical consultation: Post op recommendations appreciated -pain management. Recommend [id number] Tylenol at time of discharge. Total time spent with patient discussing and formulating plan of care: 35 minutes. This medical document was created using an electronic medical record system with [employer] dictation system. Although this document has been carefully reviewed, there may still be some phonetic and typographical errors. These areas are purely typographical due to imperfections of the software programs, and do not reflect any compromise in the patient's medical care. Plan discussed with: Patient, Other (RN) Date of Service: Mar 16, 2025 Billing Provider: HEVER SNOW NP Common Visit Codes: [id number] INP/OBS CARE(HIGH) HEVER SNOW NP Mar 16, 2025 12:06
[2025-03-16 13:00] VITALS: BP 159/80; PULSE 93; RESP 18; TEMP 97.7; O2SAT 93
== END 2025-03-16 13:25 | disposition home or self-care (01) | DRG 224 ==
LOC: ER 16:15 → EDBD 16:15 → OVERFLOW 23:15 → EAST 03-13 03:43
PROVIDERS: ADMIT Nurse Practitioner Acute Care; ATTEND Nurse Practitioner Acute Care
PROC: 0DNU4ZZ Release Omentum, Percutaneous Endoscopic Approach (ICD-10-PCS; 2025-03-13)
PROC: 0DTJ4ZZ Resection of Appendix, Percutaneous Endoscopic Approach (ICD-10-PCS; 2025-03-13)
PROC: 0FT44ZZ Resection of Gallbladder, Percutaneous Endoscopic Approach (ICD-10-PCS; principal; 2025-03-13 11:46)
DX: K35.80 Unspecified acute appendicitis (principal); K80.00 Calculus of gallbladder with acute cholecystitis without obstruction; E03.9 Hypothyroidism, unspecified; N39.0 Urinary tract infection, site not specified; F03.90 Unspecified dementia, unspecified severity, without behavioral disturbance, psychotic disturbance, mood disturbance, and anxiety; I10 Essential (primary) hypertension; E11.9 Type 2 diabetes mellitus without complications; K66.0 Peritoneal adhesions (postprocedural) (postinfection); H54.8 Legal blindness, as defined in USA; Z79.899 Other long term (current) drug therapy
CPT/HCPCS: 36415; 71045; 74176; 76705; 80053; 81001; 82248; 82962; 83605; 83690; 85025; 85610; 85730; 86850; 86900; 86901; 93005; 96365; G0378; J0131; J0694; J1100; J1815; J1885; J2405; J2470; J2704; J3490